=== PATIENT | female | born 1995 | race African-American/Black ===

== ENCOUNTER 2016-09-13 17:06 | Emergency (ER) | payer MEDICAID ==
[~2016-09-13] VITALS: Ht 162.6 cm; Wt 75.0 kg
[2016-09-13 17:08] VITALS: BP 135/65; PULSE 81; RESP 12; TEMP 98.5; O2SAT 98
--- NOTE | 2016-09-13 17:41 | PD ---
HPI Chief Complaint: Cold / Flu Symptoms Time Seen by Provider: 17:28 Travel History International Travel<30 days: No Contact w/Intl Traveler<30days: No Traveled to known affect area: No History of Present Illness HPI 21-year-old female with no significant past medical history presents for evaluation of cough. Symptoms started 2 weeks ago. She reports a cough with yellow and brown phlegm production. She reports that yesterday she had nausea and one episode of vomiting that she has had no nausea or vomiting today. She denies sore throat, rash, abdominal pain, fevers or chills. No sick contacts. No recent travel. She was seen by her primary care physician today and reportedly diagnosed with an upper respiratory infection and prescribed amoxicillin. She has not yet started the amoxicillin and comes here now for further evaluation. No history of asthma. Last menstrual. August 19. No other complaints. History Past Medical Histgory Medical History: Denies Significant Hx Tetanus Vaccination: Unknown LMP: 08/19/2016 Past Surgical History Surgical History: No Previous Surgery Social History Alcohol Use: No Tobacco Use: No Allergies-Medications (Allergen,Severity, Reaction): Coded Allergies: No Known Allergies (Unverified , 09/13/16) Reported Meds & Prescriptions Reported Meds & Active Scripts Active No Active Prescriptions or Reported Medications Review of Systems Except as stated in HPI: all other systems reviewed are Neg Physical Exam Narrative GENERAL: Well-developed well-nourished female in no acute distress SKIN: Warm and dry. HEAD: Atraumatic. Normocephalic. EYES: Pupils equal and round. No scleral icterus. No injection or drainage. ENT: No nasal bleeding or discharge. Mucous membranes pink and moist. Tympanic garments appear normal. No oral pharyngeal erythema or exudate. NECK: Trachea midline. No JVD. No lymphadenopathy. CARDIOVASCULAR: Regular rate and rhythm. No murmur appreciated. RESPIRATORY: No accessory muscle use. Clear to auscultation. Breath sounds equal bilaterally. No crackles no wheezing or rhonchi GASTROINTESTINAL: Abdomen soft, non-tender, nondistended. Data Data Last Documented VS Vital Signs Date Time Temp Pulse Resp B/P Pulse Ox O2 Delivery O2 Flow Rate FiO2 09/13/16 17:30 Room Air 09/13/16 17:08 98.5 81 12 135/65 98 MDM Medical Screen Exam Complete: Yes Emergency Medical Condition: No Narrative Course 21-year-old healthy female presents with 2 weeks of productive cough. She was prescribed amoxicillin by her primary care physician today for the diagnosis of "upper respiratory infection." Physical examination is benign. Her lungs sound clear. She is afebrile, not tachycardic. I suspect an upper respiratory infection and I see no need for further intervention at this time. Certainly it is reasonable to have this patient follow her primary care physicians treatment plan including amoxicillin use. It was discussed with her that if she develops new or worsening symptoms that she can certainly come back here for reevaluation and she is agreeable with this plan. A medical screening exam was performed: At the time of evaluation the presenting medical condition was determined not to be of an emergent nature. The patient was given the option of receiving additional care, but declined. Patient was given options for additional community resources from which to obtain care. The Patient Has Been advised to seek medical attention for their presenting complaint. The patient has been advised to return to the ER at any time if an emergent condition develops. Primary Impression: Encounter for medical screening examination Scripts No Active Prescriptions or Reported Meds Jewel Sellers Sep 13, 2016 17:41
== END 2016-09-13 17:50 | disposition left against medical advice (07) ==
LOC: NETRI 17:06
DX: R05 Cough (principal)
CPT/HCPCS: 99281

== ENCOUNTER 2016-11-02 02:46 | Emergency (ER) | payer MEDICAID ==
[~2016-11-02] VITALS: Ht 162.6 cm; Wt 77.0 kg
[2016-11-02 02:53] VITALS: BP 132/76; PULSE 74; RESP 14; TEMP 98.3; O2SAT 97
[2016-11-02] MEDS ORDERED: PENI500T PO (03:10)
--- NOTE | 2016-11-02 03:13 | PD ---
HPI Chief Complaint: ENT Complaint Time Seen by Provider: 03:10 Travel History International Travel<30 days: No Contact w/Intl Traveler<30days: No Traveled to known affect area: No History of Present Illness HPI 21-year-old black female presents to emergency department with complaints of sore throat. She states that she's been sick now for a day and a half with worsening sore throat. She states that she has had some subjective chills but no fever. She denies any ear pain, cough, shortness of breath, nausea, vomiting , abdominal pain, dysuria, frequency or vaginal complaints. She does have some loose stools. Chronic eczema. [facility] Past Medical History Narrative Medical Eczema Integumentary: Yes (ECZEMA) Tetanus Vaccination: < 5 Years ?: Not Past Surgical History Surgical History: No Previous Surgery Social History Alcohol Use: Yes Tobacco Use: No Substance Use: No Allergies-Medications (Allergen,Severity, Reaction): Coded Allergies: No Known Allergies (Unverified , 11/02/16) Reported Meds & Prescriptions Reported Meds & Active Scripts Active No Active Prescriptions or Reported Medications Review of Systems Except as stated in HPI: all other systems reviewed are Neg Physical Exam Narrative GENERAL: Well-developed, well-nourished in no acute distress. Nontoxic appearing. HEAD: Normocephalic, atraumatic. EYES: Pupils equal round and reactive. Extraocular motions intact. No scleral icterus. No injection or drainage. ENT: TMs clear without erythema. The external auditory canals clear. Nose: clear . Posterior pharynx is mild erythema and moist. No tonsillar edema or exudate. Uvula midline. Airway patent. NECK: Trachea midline.Supple, nontender, moves head freely. No central bony tenderness or spasm. CARDIOVASCULAR: Regular rate and rhythm without murmurs, gallops, or rubs. RESPIRATORY: Clear to auscultation. Breath sounds equal bilaterally. No wheezes , rales, or rhonchi. GASTROINTESTINAL: Abdomen soft, non-tender, nondistended. No hepato-splenomegaly , or palpable masses. No guarding. EXTREMITIES: No clubbing, cyanosis, or edema. No joint tenderness, effusion, or edema noted. BACK: Nontender without deformity or crepitance. No flank tenderness. Data Data Last Documented VS Vital Signs Date Time Temp Pulse Resp B/P Pulse Ox O2 Delivery O2 Flow Rate FiO2 11/02/16 02:53 98.3 74 14 132/76 97 Room Air Orders Amoxicillin (Trimox) (11/02/16 03:15) MDM Medical Decision Making Medical Screen Exam Complete: Yes Emergency Medical Condition: Yes Medical Record Reviewed: Yes Differential Diagnosis MDM: High Differential diagnoses: Strep throat, viral pharyngitis, mono, peritonsillar abscess, retropharyngeal abscess, Ralf's angina Narrative Course Patient is given amoxicillin 500 mg by mouth. This is acute pharyngitis Diagnosis Primary Impression: Acute pharyngitis Qualified Code: J02.9 - Acute pharyngitis, unspecified etiology Patient Instructions: General Instructions Departure Forms: School Release, Please excuse from school until (free text option): No school 2 days. Tests/Procedures Additional Instructions: Rest. Force fluids. Saltwater gargles. Tylenol and Advil. Chloraseptic Woden Cepastat lozenge. Pen VK. Follow-up with a primary care doctor in one week. Return to the ER if any problems. Med/Other Pt SpecificInfo: Prescription(s) given Scripts Penicillin V Potassium 500 Mg [id number] Mg PO Q12HR #20 TAB Prov:Hossein Verma MD 11/02/16 Disposition: 01 DISCHARGE HOME Condition: Stable Toy Crawford Nov 02, 2016 03:13
[2016-11-02] MEDS ORDERED: AMOXICILLIN (TRIHYDRATE) 500 MG CAP PO ONE (03:15)
== END 2016-11-02 03:25 | disposition home or self-care (01) ==
LOC: NETRI 02:46
DX: J02.9 Acute pharyngitis, unspecified (principal)
CPT/HCPCS: 99283

== ENCOUNTER 2016-11-04 02:38 | Emergency (ER) | payer MEDICAID ==
[~2016-11-04] VITALS: Ht 162.6 cm; Wt 77.0 kg
[~2016-11-04 02:38] MED LIST: PENI500T PO
[2016-11-04 02:40] VITALS: BP 138/90; PULSE 64; RESP 16; TEMP 97.5; O2SAT 100
--- NOTE | 2016-11-04 02:56 | PD ---
HPI Chief Complaint: ENT Complaint Time Seen by Provider: 02:53 Travel History International Travel<30 days: No Contact w/Intl Traveler<30days: No Traveled to known affect area: No History of Present Illness HPI 21-year-old black female returns to the ER and 24 hours for complaints of left ear pain. She was seen here yesterday was diagnosed with pharyngitis by myself. She was given amoxicillin in the ER and a prescription for Pen-Vee K. She states that she has been having improvement of her sore throat but she has developed worsening congestion and cough. Now she has severe left ear pain. No alleviating factors. PFSH Past Medical History Medical History: Denies Significant Hx Integumentary: Yes (ECZEMA) Tetanus Vaccination: < 5 Years Past Surgical History Surgical History: No Previous Surgery Social History Alcohol Use: Yes Tobacco Use: No Substance Use: No Allergies-Medications (Allergen,Severity, Reaction): Coded Allergies: No Known Allergies (Unverified , 11/04/16) Reported Meds & Prescriptions Reported Meds & Active Scripts Active Penicillin V Potassium 500 Mg Tab 500 Mg PO Q12HR Review of Systems Except as stated in HPI: all other systems reviewed are Neg Physical Exam Narrative GENERAL: Well-developed, well-nourished in no acute distress. Nontoxic appearing. HEAD: Normocephalic, atraumatic. EYES: Pupils equal round and reactive. Extraocular motions intact. No scleral icterus. No injection or drainage. ENT: TMs clear without erythema. The right TM is clear. The left TM is distended. The external auditory canals clear. Nose: clear . Posterior pharynx is pink and moist. No tonsillar edema or exudate. Uvula midline. Airway patent. NECK: Trachea midline.Supple, nontender, moves head freely. No central bony tenderness or spasm. CARDIOVASCULAR: Regular rate and rhythm without murmurs, gallops, or rubs. RESPIRATORY: Clear to auscultation. Breath sounds equal bilaterally. No wheezes , rales, or rhonchi. GASTROINTESTINAL: Abdomen soft, non-tender, nondistended. No hepato-splenomegaly , or palpable masses. No guarding. EXTREMITIES: No clubbing, cyanosis, or edema. No joint tenderness, effusion, or edema noted. BACK: Nontender without deformity or crepitance. No flank tenderness. Data Data Last Documented VS Vital Signs Date Time Temp Pulse Resp B/P Pulse Ox O2 Delivery O2 Flow Rate FiO2 11/04/16 02:40 97.5 64 16 138/90 100 Room Air MDM Medical Decision Making Medical Screen Exam Complete: Yes Emergency Medical Condition: Yes Medical Record Reviewed: Yes Differential Diagnosis differential diagnoses: Otitis media, otitis externa, eustachian tube dysfunction Narrative Course Patient given Lortab 5 mg by mouth. This is eustachian tube dysfunction Diagnosis Primary Impression: Eustachian tube dysfunction Patient Instructions: General Instructions Additional Instructions: Rest. Continue antibiotics. 3 Advil every 6 hours. Afrin nasal spray for the next 4 days only. Sudafed for the next 1-2 weeks. . Return to the emergency department if any problems Med/Other Pt SpecificInfo: No Change to Meds Disposition: 01 DISCHARGE HOME Condition: Stable Toy Crawford Nov 04, 2016 02:56
[2016-11-04] MEDS ORDERED: ACETAMINOPHEN/HYDROcodone 325 MG/5 MG TAB PO ONE (03:00)
== END 2016-11-04 03:18 | disposition home or self-care (01) ==
LOC: NETRI 02:38
DX: H69.80 Other specified disorders of Eustachian tube, unspecified ear (principal)
CPT/HCPCS: 99282

== ENCOUNTER 2016-12-08 22:20 | Emergency (ER) | payer MEDICAID ==
[~2016-12-08] VITALS: Ht 160 cm; Wt 77.0 kg
[2016-12-08 22:22] VITALS: BP 142/77; PULSE 87; RESP 16; TEMP 98.5; O2SAT 100
--- NOTE | 2016-12-08 22:58 | PD ---
HPI Chief Complaint: Ordnance Technician Problem/Complaint Time Seen by Provider: 22:41 Travel History International Travel<30 days: No Contact w/Intl Traveler<30days: No Traveled to known affect area: No History of Present Illness HPI This is a 21-year-old female who presents to the emergency department with 1 day of a painful bump in her vagina associated with some discharge. Her symptoms of been constant, moderate severity, worse in the morning improved throughout the day. She denies any fevers or chills and denies any abdominal pain. She's had 2 sexual partners in the last 6 months. PFSH Past Medical History Integumentary: Yes (ECZEMA) Tetanus Vaccination: Unknown Influenza Vaccination: No ?: Not LMP: 11/23/16 Past Surgical History Surgical History: No Previous Surgery Social History Alcohol Use: Yes (ONCE A WEEK) Tobacco Use: No Substance Use: Yes (MARIJUANA ONCE A WEEK) Allergies-Medications (Allergen,Severity, Reaction): Coded Allergies: No Known Allergies (Unverified , 12/08/16) Reported Meds & Prescriptions Reported Meds & Active Scripts Active Penicillin V Potassium 500 Mg Tab 500 Mg PO Q12HR Review of Systems General / Constitutional: No: Fever, Chills Gastrointestinal: No: Abdominal Pain Physical Exam Narrative GENERAL: Well-appearing, no acute distress, nontoxic SKIN: Warm and dry. HEAD: Atraumatic. Normocephalic. ENT: No nasal bleeding or discharge. Moist mucous membranes RN SECURITY: Some white discharge in the vault, small isolated vesicular lesion on the right upper labia minora. MUSCULOSKELETAL: No obvious deformities. No clubbing. No cyanosis. No edema. NEUROLOGICAL: Awake and alert. No obvious cranial nerve deficits. Motor grossly within normal limits. Normal speech. PSYCHIATRIC: Appropriate mood and affect; insight and judgment normal. Data Data Last Documented VS Vital Signs Date Time Temp Pulse Resp B/P Pulse Ox O2 Delivery O2 Flow Rate FiO2 12/08/16 22:22 98.5 87 16 142/77 100 Room Air MDM Medical Decision Making Medical Screen Exam Complete: Yes Emergency Medical Condition: Yes Differential Diagnosis HSV, Bartholin's cyst, abscess Narrative Course This is a 21-year-old female who presents to the emergency department. Pt. became upset when I initially brought a male nurse to do her pelvic exam, and then she was hesitant to complete the rest of her exam despite a female tech coming into the room to assist with the exam instead. I did examine her external genitalia. On exam she has a small vesicular lesion which is isolated on exam. This may be a herpetic lesion, but it also may be a small genital wart or benign growth. She has an outpatient gyro compass tester which she would like to follow up with. I don't think this reflects a gynecologic emergency. Pt. was discharged home. Diagnosis Primary Impression: Vaginal lesion Patient Instructions: General Instructions Additional Instructions: If you develop abdominal pain, fevers or chills return to the emergency department. Use protection until you're seen by her gyro compass tester. Follow-up with your gyro compass tester regarding the lesion on your vagina. Med/Other Pt SpecificInfo: No Change to Meds Disposition: 01 DISCHARGE HOME Condition: Stable Charleen Galvan MD December 08, 2016 22:58
== END 2016-12-09 | disposition home or self-care (01) ==
LOC: NEPE 22:20
DX: N89.8 Other specified noninflammatory disorders of vagina (principal); F12.90 Cannabis use, unspecified, uncomplicated
CPT/HCPCS: 99283

== ENCOUNTER 2017-03-22 18:05 | Emergency (ER) | payer SELFPAY ==
[~2017-03-22] VITALS: Ht 162.6 cm; Wt 75.0 kg
[2017-03-22 18:07] VITALS: BP 151/77; PULSE 89; RESP 15; TEMP 97.9; O2SAT 99
[2017-03-22] MEDS ORDERED: CEPH500C PO (18:09)
--- NOTE | 2017-03-22 20:09 | PD ---
HPI Chief Complaint: Facial Pain or Swelling Time Seen by Provider: 20:08 Travel History International Travel<30 days: No Contact w/Intl Traveler<30days: No Traveled to known affect area: No History of Present Illness HPI 22-year-old Afro-[place] female presents the emergency department with recurrent flare-up of her eczematous type symptoms. Patient states he's had trouble with eczema and area since she was a child. She was recently treated with prednisone 20 mg twice a day 7 days for swelling and eczematous type symptoms of both forearms stopping 3 days ago. She is now having is erythematous swelling and she denies difficulty swallowing, breathing, or swelling of the tongue or throat. States this is typical for her eczematous symptoms. She has been seen by multiple label maker and manager of loss prevention operations in the past but currently is not seeing a primary care physician as her Medicaid was cut. He denies any other acute symptoms. She has no known drug allergies. PFSH Past Medical History Integumentary: Yes (ECZEMA) ?: Not LMP: 03/15/17 Social History Alcohol Use: Yes (ONCE A WEEK) Tobacco Use: No Substance Use: Yes (MARIJUANA ONCE A WEEK) Allergies-Medications (Allergen,Severity, Reaction): Coded Allergies: No Known Allergies (Unverified , 03/22/17) Reported Meds & Prescriptions Reported Meds & Active Scripts Active Reported Prednisone 20 Mg Tab 20 Mg PO BID Cephalexin 500 Mg Cap 500 Mg PO Q6H Review of Systems Except as stated in HPI: all other systems reviewed are Neg General / Constitutional: No: Fever Eyes: No: Visual changes HENT: No: Headaches Cardiovascular: No: Chest Pain or Discomfort Respiratory: No: Shortness of Breath Gastrointestinal: No: Abdominal Pain Genitourinary: No: Dysuria Musculoskeletal: No: Pain Skin: Positive Rash, Positive Itching, Positive Dryness Neurologic: No: Weakness Psychiatric: No: Depression Endocrine: No: Polydipsia Hematologic/Lymphatic: No: Easy Bruising Physical Exam Narrative GENERAL: Patient appears in no acute distress. SKIN: Warm and dry. She has obvious chronic eczema with old pigmentation changes. Currently she has acute erythema and swelling to the cheeks and eyelids bilaterally. Lips or tongue. No other acute findings are noted. HEAD: Atraumatic. Normocephalic. EYES: Pupils equal and round. No scleral icterus. No injection or drainage. ENT: No nasal bleeding or discharge. Mucous membranes pink and moist. Pharynx is clear. Airway is patent. Tongue is normal. NECK: Trachea midline. Supple and nontender without lymphadenopathy. CARDIOVASCULAR: Regular rate and rhythm. RESPIRATORY: No accessory muscle use. Clear to auscultation. Breath sounds equal bilaterally. MUSCULOSKELETAL: Extremities without clubbing, cyanosis, or edema. No obvious deformities. NEUROLOGICAL: Awake and alert. No obvious cranial nerve deficits. Motor grossly within normal limits. Five out of 5 muscle strength in the arms and legs. Normal speech. PSYCHIATRIC: Appropriate mood and affect; insight and judgment normal. Data Data Last Documented VS Vital Signs Date Time Temp Pulse Resp B/P Pulse Ox O2 Delivery O2 Flow Rate FiO2 03/22/17 18:07 97.9 89 15 151/77 99 Orders Prednisone (Deltasone) (03/22/17 20:30) [facility] Medical Decision Making Medical Screen Exam Complete: Yes Emergency Medical Condition: Yes Differential Diagnosis Eczema. Idiopathic urticaria. Hives. Narrative Course Patient is felt to be medically stable at this time. Patient is given 60 mg prednisone by mouth now. Will be treated on an outpatient basis with a slow prednisone taper over the next 2 weeks. Patient is to follow-up with local primary care physician as discussed. Patient can return to emergency Department with worsening symptoms as needed. Diagnosis Primary Impression: Eczema of face Referrals: [facility] Patient Instructions: Eczema (ED), General Instructions Additional Instructions: Patient is given 60 mg prednisone by mouth now. Will be treated on an outpatient basis with a slow prednisone taper over the next 2 weeks. Patient is to follow-up with local primary care physician as discussed. Patient can return to emergency Department with worsening symptoms as needed. Med/Other Pt SpecificInfo: Prescription(s) given Scripts Prednisone (48) 10 mg tab Dose Pack 10 Mg Dspk10 Mg PO DIRECTED #1 DSPK Ref 0 Prov:Alexis Sanchez MD 03/22/17 Disposition: 01 DISCHARGE HOME Condition: Stable Sebastien Parada Mar 22, 2017 20:08
[2017-03-22] MEDS ORDERED: PRED20 PO (20:10)
[2017-03-22] MEDS ORDERED: PRED10PA2 PO (20:20)
[2017-03-22] MEDS ORDERED: predniSONE 20 MG TAB PO ONE (20:30)
== END 2017-03-22 20:37 | disposition home or self-care (01) ==
LOC: NEPD 18:05
DX: L30.9 Dermatitis, unspecified (principal)
CPT/HCPCS: 99283; J7512

== ENCOUNTER 2017-05-12 15:40 | Emergency (ER) | payer MEDICAID ==
[~2017-05-12] VITALS: Ht 162.6 cm; Wt 78.0 kg
[~2017-05-12 15:40] MED LIST changes: +CEPH500C PO; -PENI500T PO; +PRED10PA2 PO; +PRED20 PO
[2017-05-12 15:44] VITALS: BP 146/76; PULSE 76; RESP 12; TEMP 97.5; O2SAT 97
--- NOTE | 2017-05-12 18:52 | PD ---
HPI Chief Complaint: Skin Problem Time Seen by Provider: 18:44 Travel History International Travel<30 days: No Contact w/Intl Traveler<30days: No Traveled to known affect area: No History of Present Illness HPI 22-year-old female with history of severe eczema came to the emergency room since she is going through an acute flareup. Patient was at [facility] emergency room earlier and was given a course of prednisone for 7 days. Patient says that it did not help whole lot. She has been applying steroid cream and using Carter butter. Patient does not have insurance and cannot afford dermatologists. Does not have a primary care physician. Vital signs were stable. [facility] Past Medical History Narrative Medical List of her past medical, surgical, social and family history is reviewed from the nursing note. Integumentary: Yes (ECZEMA) ?: Not Past Surgical History Surgical History: No Previous Surgery Social History Alcohol Use: No (ONCE A WEEK) Tobacco Use: No Substance Use: Yes (MARIJUANA rarely) Allergies-Medications (Allergen,Severity, Reaction): Coded Allergies: No Known Allergies (Unverified , 05/12/17) Comments No known drug allergies. Reported Meds & Prescriptions Reported Meds & Active Scripts Active Vistaril (Hydroxyzine Pamoate) 25 Mg Cap 25 Mg PO TID PRN Tacrolimus Topical 0.1 % Oint 1 Applic TOPICAL BID 45 Days Narrative Medication List of her home medications reviewed from the nursing note. Review of Systems Except as stated in HPI: all other systems reviewed are Neg Skin: Positive Rash, Positive Itching Physical Exam Narrative GENERAL: Awake, alert, moderate distress SKIN: Focused skin assessment warm/dry. Extensive generalized eczema with dried , cracked and flaky skin. No signs of cellulitis or abscess. HEAD: Atraumatic. Normocephalic. EYES: Pupils equal and round. No scleral icterus. No injection or drainage. ENT: No nasal bleeding or discharge. Mucous membranes pink and moist. NECK: Trachea midline. No JVD. CARDIOVASCULAR: Regular rate and rhythm. No murmur appreciated. RESPIRATORY: No accessory muscle use. Clear to auscultation. Breath sounds equal bilaterally. GASTROINTESTINAL: Abdomen soft, non-tender, nondistended. Hepatic and splenic margins not palpable. MUSCULOSKELETAL: No obvious deformities. No clubbing. No cyanosis. No edema. NEUROLOGICAL: Awake and alert. No obvious cranial nerve deficits. Motor grossly within normal limits. Normal speech. PSYCHIATRIC: Appropriate mood and affect; insight and judgment normal. Data Data Last Documented VS Orders Orders Hydroxyzine Hcl (Atarax) (05/12/17 19:15) MDM Medical Decision Making Medical Screen Exam Complete: Yes Emergency Medical Condition: Yes Medical Record Reviewed: Yes Differential Diagnosis Severe eczema Narrative Course 7:23 PM I explained to the patient that there is no current reason for admitting this patient. Upon reviewing Up to date literature on severe eczema I have prescribed her tacrolimus 0.1% cream as well as by mouth Vistaril. I gave her a dose of by mouth Vistaril here. I will discharge her home and I have recommended her to find a licensing analyst or an allergy orthotics technician if possible. I've also given her extensive literature on the importance of keeping her skin moist at all times of the day. Procedures EKG Prior to Arrival: No Diagnosis Primary Impression: Severe eczema Referrals: Primary Care Physician Additional Instructions: Please apply the ointment that has been prescribed to you as per the direction. Take the other medication as per the direction. You should not be driving while taking the oral medication since it'll make you groggy. Please read the instruction below regarding maintaining your skin hydration which is extremely important with her disease condition. Maintaining skin hydration Skin hydration is a tripp component of the overall management of patients with atopic dermatitis. Lotions, which have a high water and low oil content, can worsen xerosis via evaporation and trigger a flare of the disease. In contrast, thick creams (eg, Eucerin, Cetaphil, Nutraderm), which have a low water content, or ointments (eg, petroleum jelly, Vaseline, Aquaphor), which have zero water content, better protect against xerosis, but some patients may complain that they are greasy. To maintain skin hydration, emollients should be applied at least two times per day and immediately after bathing or hand-washing. Since atopic skin is deficient in stratum corneum lipids (especially ceramide) and "natural moisturizing factor" (a mixture of hygroscopic amino acids resulting from filaggrin breakdown), moisturizers that contain those ingredients may be beneficial. There are a number of topical "therapeutic moisturizers" available in the [place] by prescription. These agents contain a variety of components intended to improve skin barrier function and are expensive. There are few data demonstrating their efficacy, but one randomized trial suggests that they are no more effective than [id number] emollients [17]. A randomized trial in infants with atopic dermatitis who required moderate or high potency topical steroids found that infants treated with emollients had significantly decreased requirements for topical steroids compared with a control group of infants who were not treated with emollients [18]. Emollients are best applied immediately after bathing when the skin is well hydrated. Some controversy exists concerning the frequency of bathing and whether showering or bathing is preferable in patients with atopic dermatitis. Most authorities recommend a hydrating bath followed by immediate emollient application, but others recommend a shower of short duration. No well-designed studies have been published to address this controversy. We feel that either option is reasonable but suggest bathing to most patients; whether bath or shower, rapid application of emollients and/or prescribed topical preparations immediately after is important. Return to the ER if the condition worsens or any other new concerns. Ideally you should have a licensing analyst or an allergy orthotics technician to follow up with. Scripts Hydroxyzine Pamoate (Vistaril) 25 Mg Cap 25 MG PO TID Y for itching and anxiety, #21 CAP 0 Refills Prov: Júnior Waggoner MD 05/12/17 Tacrolimus Topical (Tacrolimus Topical) 0.1 % Oint 1 APPLIC TOPICAL BID for 45 Days, GM 0 Refills Prov: Júnior Wagogner MD 05/12/17 Disposition: 01 DISCHARGE HOME Condition: Stable Júnior Waggoner MD May 12, 2017 18:52
[2017-05-12] MEDS ORDERED: TACR0.1O TOPICAL (19:12)
[2017-05-12] MEDS ORDERED: VIST25CA PO (19:12)
[2017-05-12] MEDS ORDERED: hydrOXYzine HCL 25 MG TAB PO ONE (19:15)
== END 2017-05-12 19:55 | disposition home or self-care (01) ==
LOC: NEPD 15:40
DX: L20.9 Atopic dermatitis, unspecified (principal)
CPT/HCPCS: 99284

== ENCOUNTER 2017-11-08 09:35 | Emergency (ER) | payer SELFPAY ==
[~2017-11-08] VITALS: Ht 162.6 cm; Wt 63.6 kg
[~2017-11-08 09:35] MED LIST changes: -CEPH500C PO; -PRED10PA2 PO; -PRED20 PO; +TACR0.1O TOPICAL; +VIST25CA PO
[2017-11-08 09:45] VITALS: BP 126/69; PULSE 77; RESP 18; TEMP 98.1; O2SAT 99
[2017-11-08] MEDS ORDERED: BETA0.1O9 TOPICAL (11:12)
[2017-11-08] MEDS ORDERED: PRED10 PO (11:12)
--- NOTE | 2017-11-08 11:13 | PD ---
HPI Chief Complaint: Skin Problem Time Seen by Provider: 10:40 Travel History International Travel<30 days: No Contact w/Intl Traveler<30days: No Traveled to known affect area: No History of Present Illness HPI 22-year-old female, with history of eczema, presents to the emergency department with complaint of worsening of eczema to bilateral legs and feet 2 weeks. She finished steroids 2 weeks ago and her symptoms have been coming back. She denies fever, vomiting. Reports dry skin, itchy, burning sensation. Denies fever, vomiting. Uses Aquaphor daily for symptom management. Symptoms are moderate in severity. Says oral steroids in combination with topical betamethasone is the best treatment for her. Symptoms are worse when showering. Better with combination of medications per she was given betamethasone also 2 weeks ago but it only lasted about 3 days. She has no primary care provider. Does not see a physical therapy professor. No known allergies. History of eczema. Has no other medical complaints. No other modifying factors or associated signs and symptoms. PFSH Past Medical History Integumentary: Yes (ECZEMA) Tetanus Vaccination: Unknown Influenza Vaccination: No ?: Not LMP: 10/25/17 Past Surgical History Surgical History: No Previous Surgery Social History Alcohol Use: No (ONCE A WEEK) Tobacco Use: No Substance Use: No Allergies-Medications (Allergen,Severity, Reaction): Coded Allergies: No Known Allergies (Unverified Adverse Reaction, Unknown, 11/08/17) Reported Meds & Prescriptions Reported Meds & Active Scripts Active Prednisone 10 Mg Tab 10 Mg PO DIRECTED 4 pills (40mg) daily x1 week then, 3 pills (30mg) daily x1 week then, 2 pills (20mg) daily x1 week then, 1 pills (10mg) daily x1 week then, Betamethasone Valerate Topical 0.1% Oint 1 Applic TOPICAL BID Review of Systems Except as stated in HPI: all other systems reviewed are Neg Physical Exam Narrative GENERAL: Well-nourished, well-developed black female patient, in no acute distress SKIN: Warm and dry. Bilateral lower extremities with dry, flaky skin from the waist down. Areas of dry flaky skin noted to bilateral upper extremities, but is not as bad as bilateral lower extremities. No signs of cellulitis. HEAD: Atraumatic. Normocephalic. EYES: Pupils equal and round. No scleral icterus. No injection or drainage. ENT: Mucosa pink and moist. Airway patent. NECK: Trachea midline. CARDIOVASCULAR: Regular rate. RESPIRATORY: No accessory muscle use. GASTROINTESTINAL: Flat. MUSCULOSKELETAL: No obvious deformities. No clubbing. No cyanosis. No edema. NEUROLOGICAL: Awake and alert. Oriented 3. No obvious cranial nerve deficits. Motor grossly within normal limits. Normal speech. PSYCHIATRIC: Appropriate mood and affect; insight and judgment normal. Data Data Last Documented VS Vital Signs Date Time Temp Pulse Resp B/P (MAP) Pulse Ox O2 Delivery O2 Flow Rate FiO2 11/08/17 09:45 98.1 77 18 126/69 (88) 99 Orders Orders Ed Discharge Order (11/08/17 11:13) MDM Medical Decision Making Medical Screen Exam Complete: Yes Emergency Medical Condition: Yes Medical Record Reviewed: Yes Differential Diagnosis Eczema, psoriasis, contact dermatitis Narrative Course 22-year-old female with history of eczema with severe eczema to bilateral lower extremities. I discussed the patient with my attending physician, Dr. Tirado, and we discussed a plan of care. Prednisone taper, betamethasone topical prescribed for home. Patient provided information for [facility] clinic for follow-up. Instructed patient to follow up with primary care provider. Patient verbalizes understanding and agreement with treatment plan. Patient is medically cleared and stable for discharge. Discussed reasons to return to the emergency department. Patient agrees with treatment plan. The patients vital signs are stable and the patient is stable for outpatient follow-up and treatment. Patient discharged home, stable and in no acute distress. Diagnosis Primary Impression: Eczema Qualified Codes: L30.9 - Dermatitis, unspecified Referrals: [facility] Primary Care Physician Patient Instructions: Eczema (ED), General Instructions Departure Forms: Tests/Procedures, Work Release Enter return to work date: Nov 09, 2017 Additional Instructions: Steroids as directed Topical betamethasone as prescribed Follow-up with physical therapy professor Follow-up with primary care provider Return to the emergency department immediately for worsening of symptoms Med/Other Pt SpecificInfo: Prescription(s) given Scripts Prednisone (Prednisone) 10 Mg Tab 10 MG PO DIRECTED, #53 TAB 0 Refills 4 pills (40mg) daily x1 week then, 3 pills (30mg) daily x1 week then, 2 pills (20mg) daily x1 week then, 1 pills (10mg) daily x1 week then, Prov: Adore Velasco 11/08/17 Betamethasone Valerate Topical (Betamethasone Valerate Topical) 0.1% Oint 1 APPLIC TOPICAL BID for Dermatoses, #45 GM 1 Refill Prov: Adore Velasco 11/08/17 Disposition: 01 DISCHARGE HOME Condition: Stable Adore Velasco Nov 08, 2017 11:13
== END 2017-11-08 11:58 | disposition home or self-care (01) ==
LOC: NEPD 09:35
DX: L30.9 Dermatitis, unspecified (principal)
CPT/HCPCS: 99283